=== PATIENT | female | born 1975 | race Caucasian/White ===

== ENCOUNTER → 2021-01-01 | Outpatient (CLI) | payer OTHER ==
[~2021-01-01] MED LIST: CLEOCIN HCL150 MG PO
== END ==
LOC: HEART 5 07:30
DX: R00.2 Palpitations (principal)

== ENCOUNTER 2021-05-26 16:53 | Emergency (ER) | payer OTHER ==
[2021-05-26 19:24] LABS: HEMOGLOBIN 14.9 gm/dl (12.3-15.3); RED BLOOD COUNT 5.21 M/UL (4.00-5.10); WHITE BLOOD COUNT 8.9 K/UL (4.5-11.0)
[2021-05-26 19:48] LABS: BUN/CREATININE RATIO 13 (0-10)
[2021-05-26] MEDS ORDERED: CYCLOBENZAPRINE5 MG PO (23:19)
[2021-05-26] MEDS ORDERED: MOBIC15 MG PO (23:19)
== END 2021-05-27 00:08 | disposition home or self-care (01) ==
LOC: ER1 16:53
PROVIDERS: Physician Assistant
DX: R07.89 Other chest pain (principal); I10 Essential (primary) hypertension; E78.5 Hyperlipidemia, unspecified; K21.9 Gastro-esophageal reflux disease without esophagitis; M25.512 Pain in left shoulder
CPT/HCPCS: 71045; 80053; 82550; 82553; 83874; 83880; 84484; 84703; 85025; 93005; 96372; 99285; J1885